=== PATIENT | male | born 1950 | race Caucasian/White ===

== ENCOUNTER → 2017-04-24 | Outpatient (REF) | payer MEDICARE, OTHER ==
[2017-04-24 14:00] LABS: ALBUMIN 4.3 GM/DL (3.2-5.2); ALBUMIN/GLOBULIN RATIO 1.48 (1.00-1.93); ALKALINE PHOSPHATASE 129 U/L (45-117); ALT/SGPT 52 U/L (12-78); ANION GAP 7 MEQ/L (8-16); AST/SGOT 51 U/L (15-37); BILIRUBIN,TOTAL 0.7 MG/DL (0.2-1.0); BLOOD UREA NITROGEN 24 MG/DL (7-18); CALCIUM LEVEL 8.9 MG/DL (8.8-10.2); CARBON DIOXIDE LEVEL 29 MEQ/L (21-32); CHLORIDE LEVEL 105 MEQ/L (98-107); CREATININE FOR GFR 0.97 MG/DL (0.70-1.30); GLOMERULAR FILTRATION RATE > 60.0 (>49); GLUCOSE, FASTING 130 MG/DL (80-110); POTASSIUM SERUM 3.6 MEQ/L (3.5-5.1); SODIUM LEVEL 141 MEQ/L (136-145); TOTAL PROTEIN 7.2 GM/DL (6.4-8.2)
== END ==
LOC: M LABDRAW1 13:05
PROVIDERS: ATTEND Physician Assistant
DX: I25.10 Atherosclerotic heart disease of native coronary artery without angina pectoris (principal); I11.9 Hypertensive heart disease without heart failure; E78.2 Mixed hyperlipidemia

== ENCOUNTER → 2017-10-27 | Outpatient (REF) | payer MEDICARE, OTHER ==
[2017-10-27 12:39] LABS: MEAN CORPUSCULAR HEMOGLOBIN 29.7 pg (27.0-33.0); MEAN CORPUSCULAR HGB CONC 33.6 g/dl (32.0-36.5); MEAN CORPUSCULAR VOLUME 88.4 fl (80.0-96.0); PLATELET COUNT, AUTOMATED 287 10^3/uL (150-450); RED CELL DISTRIBUTION WIDTH 12.9 % (11.5-14.5); WHITE BLOOD COUNT 5.7 10^3/uL (4.0-10.0)
[2017-10-27 12:56] LABS: ALBUMIN/GLOBULIN RATIO 1.25 (1.00-1.93); ALKALINE PHOSPHATASE 111 U/L (45-117); ALT/SGPT 32 U/L (12-78); ANION GAP 8 MEQ/L (8-16); AST/SGOT 34 U/L (7-37); BILIRUBIN,TOTAL 0.7 MG/DL (0.2-1.0); BLOOD UREA NITROGEN 21 MG/DL (7-18); CALCIUM LEVEL 9.3 MG/DL (8.8-10.2); CARBON DIOXIDE LEVEL 32 MEQ/L (21-32); CHLORIDE LEVEL 102 MEQ/L (98-107); CHOLESTEROL LEVEL 161 MG/DL (<200); GLOMERULAR FILTRATION RATE > 60.0 (>49); GLUCOSE, FASTING 137 MG/DL (80-110); POTASSIUM SERUM 4.1 MEQ/L (3.5-5.1); SODIUM LEVEL 142 MEQ/L (136-145); TOTAL PROTEIN 7.2 GM/DL (6.4-8.2); TRIGLYCERIDES LEVEL 123 MG/DL (<150)
== END ==
LOC: M LABDRAW1 12:21
PROVIDERS: ATTEND Physician Assistant
DX: I25.10 Atherosclerotic heart disease of native coronary artery without angina pectoris (principal); I11.9 Hypertensive heart disease without heart failure; E78.2 Mixed hyperlipidemia

== ENCOUNTER → 2018-04-29 | Outpatient (REF) | payer MEDICARE, OTHER ==
[2018-04-29 12:23] LABS: ALBUMIN 4.2 GM/DL (3.2-5.2); ALKALINE PHOSPHATASE 113 U/L (45-117); ALT/SGPT 42 U/L (12-78); ANION GAP 10 MEQ/L (8-16); AST/SGOT 35 U/L (7-37); BILIRUBIN,TOTAL 0.8 MG/DL (0.2-1.0); BLOOD UREA NITROGEN 19 MG/DL (7-18); CALCIUM LEVEL 9.3 MG/DL (8.8-10.2); CARBON DIOXIDE LEVEL 28 MEQ/L (21-32); CHLORIDE LEVEL 105 MEQ/L (98-107); CREATININE FOR GFR 0.99 MG/DL (0.70-1.30); GLOMERULAR FILTRATION RATE > 60.0 (>49); GLUCOSE, FASTING 145 MG/DL (70-100); SODIUM LEVEL 143 MEQ/L (136-145); TOTAL PROTEIN 7.2 GM/DL (6.4-8.2)
== END ==
LOC: M LABDRAW1 11:34
DX: I25.10 Atherosclerotic heart disease of native coronary artery without angina pectoris (principal); I11.9 Hypertensive heart disease without heart failure; E78.2 Mixed hyperlipidemia
CPT/HCPCS: 80053

== ENCOUNTER → 2018-10-22 | Outpatient (REF) | payer MEDICARE, OTHER ==
[2018-10-22 12:16] LABS: HEMATOCRIT 48.9 % (42.0-52.0); HEMOGLOBIN 16.2 g/dl (13.5-17.5); MEAN CORPUSCULAR HEMOGLOBIN 29.8 pg (27.0-33.0); MEAN CORPUSCULAR HGB CONC 33.1 g/dl (32.0-36.5); MEAN CORPUSCULAR VOLUME 89.9 fl (80.0-96.0); PLATELET COUNT, AUTOMATED 261 10^3/uL (150-450); RED BLOOD COUNT 5.44 10^6/uL (4.30-6.10); RED CELL DISTRIBUTION WIDTH 12.8 % (11.5-14.5); WHITE BLOOD COUNT 6.2 10^3/uL (4.0-10.0)
[2018-10-22 12:34] LABS: ALBUMIN 4.1 GM/DL (3.2-5.2); ALBUMIN/GLOBULIN RATIO 1.32 (1.00-1.93); ALKALINE PHOSPHATASE 108 U/L (45-117); ALT/SGPT 50 U/L (12-78); ANION GAP 7 MEQ/L (8-16); AST/SGOT 42 U/L (7-37); BILIRUBIN,TOTAL 0.9 MG/DL (0.2-1.0); BLOOD UREA NITROGEN 22 MG/DL (7-18); CALCIUM LEVEL 9.1 MG/DL (8.8-10.2); CARBON DIOXIDE LEVEL 30 MEQ/L (21-32); CHLORIDE LEVEL 104 MEQ/L (98-107); CHOLESTEROL LEVEL 176 MG/DL (<200); CREATININE FOR GFR 1.03 MG/DL (0.70-1.30); GLOMERULAR FILTRATION RATE > 60.0 (>49); GLUCOSE, FASTING 148 MG/DL (70-100); HDL CHOLESTEROL 53 MG/DL (>40); LDL CHOLESTEROL 94 MG/DL (<100); NON-HDL-C 123 MG/DL; POTASSIUM SERUM 4.2 MEQ/L (3.5-5.1); SODIUM LEVEL 141 MEQ/L (136-145); TOTAL PROTEIN 7.2 GM/DL (6.4-8.2); TRIGLYCERIDES LEVEL 145 MG/DL (<150)
== END ==
LOC: M LABDRAW1 11:38
DX: I25.10 Atherosclerotic heart disease of native coronary artery without angina pectoris (principal); I11.9 Hypertensive heart disease without heart failure; E78.2 Mixed hyperlipidemia
CPT/HCPCS: 80053

== ENCOUNTER → 2019-10-25 | Outpatient (REF) | payer MEDICARE, OTHER ==
[2019-10-25 12:10] LABS: HEMATOCRIT 49.6 % (42.0-52.0); MEAN CORPUSCULAR HEMOGLOBIN 29.5 pg (27.0-33.0); MEAN CORPUSCULAR HGB CONC 32.3 g/dl (32.0-36.5); MEAN CORPUSCULAR VOLUME 91.5 fl (80.0-96.0); PLATELET COUNT, AUTOMATED 269 10^3/uL (150-450); RED BLOOD COUNT 5.42 10^6/uL (4.30-6.10); WHITE BLOOD COUNT 6.1 10^3/uL (4.0-10.0)
[2019-10-25 12:45] LABS: ALBUMIN 4.2 GM/DL (3.2-5.2); ALT/SGPT 35 U/L (12-78); BILIRUBIN,TOTAL 0.8 MG/DL (0.2-1.0); BLOOD UREA NITROGEN 19 MG/DL (7-18); CALCIUM LEVEL 9.7 MG/DL (8.8-10.2); CARBON DIOXIDE LEVEL 29 MEQ/L (21-32); CHLORIDE LEVEL 103 MEQ/L (98-107); CHOLESTEROL LEVEL 171 MG/DL (<200); CREATININE FOR GFR 1.06 MG/DL (0.70-1.30); GLOMERULAR FILTRATION RATE > 60.0 (>49); GLUCOSE, FASTING 187 MG/DL (70-100); HDL CHOLESTEROL 57 MG/DL (>40); LDL CHOLESTEROL 80 MG/DL (<100); NON-HDL-C 114 MG/DL; POTASSIUM SERUM 4.1 MEQ/L (3.5-5.1); SODIUM LEVEL 141 MEQ/L (136-145); TOTAL PROTEIN 7.3 GM/DL (6.4-8.2); TRIGLYCERIDES LEVEL 170 MG/DL (<150)
== END ==
LOC: M LABDRAW1 11:47
PROVIDERS: ATTEND Physician Assistant
DX: I11.9 Hypertensive heart disease without heart failure (principal); E78.2 Mixed hyperlipidemia; I25.10 Atherosclerotic heart disease of native coronary artery without angina pectoris

== ENCOUNTER → 2020-04-20 | Outpatient (REF) | payer MEDICARE, OTHER | LOC: M LAB 19:15 | PROVIDERS: ATTEND Physician Assistant | DX: R31.9 Hematuria, unspecified (principal) ==

== ENCOUNTER → 2020-04-21 | Outpatient (CLI) | payer MEDICARE, OTHER ==
[2020-04-21 11:28] LABS: ALBUMIN 4.2 GM/DL (3.2-5.2); ALT/SGPT 51 U/L (12-78); BILIRUBIN,TOTAL 0.8 MG/DL (0.2-1.0); BLOOD UREA NITROGEN 24 MG/DL (7-18); CALCIUM LEVEL 9.3 MG/DL (8.8-10.2); CARBON DIOXIDE LEVEL 29 MEQ/L (21-32); CHLORIDE LEVEL 103 MEQ/L (98-107); CREATININE FOR GFR 1.13 MG/DL (0.70-1.30); GLOMERULAR FILTRATION RATE > 60.0 (>49); GLUCOSE, FASTING 211 MG/DL (70-100); SODIUM LEVEL 141 MEQ/L (136-145); TOTAL PROTEIN 7.3 GM/DL (6.4-8.2)
[2020-04-21 11:29] LABS: BASO # 0.1 10^3/uL (0.0-0.2); EOS # 0.3 10^3/uL (0.0-0.5); EOS % 5.1 % (0.0-3.0); HEMATOCRIT 47.1 % (42.0-52.0); HEMOGLOBIN 15.5 g/dl (13.5-17.5); LYMPH # 1.3 10^3/uL (1.5-5.0); LYMPH % 21.4 % (24.0-44.0); MEAN CORPUSCULAR HEMOGLOBIN 29.9 pg (27.0-33.0); MEAN CORPUSCULAR HGB CONC 32.9 g/dl (32.0-36.5); MEAN CORPUSCULAR VOLUME 90.9 fl (80.0-96.0); MONO # 0.5 10^3/uL (0.0-0.8); MONO % 7.7 % (0.0-5.0); NEUTROPHILS # 3.9 10^3/uL (1.5-8.5); NEUTROPHILS % 64.3 % (36.0-66.0); PLATELET COUNT, AUTOMATED 266 10^3/uL (150-450); RED BLOOD COUNT 5.18 10^6/uL (4.30-6.10); WHITE BLOOD COUNT 6.1 10^3/uL (4.0-10.0)
--- NOTE | 2020-04-23 10:15 | REP ---
KUB: REASON FOR EXAM: Hematuria. There are no priors for comparison. Preliminary report given by Dr. Briones. FINDINGS: KUB shows the intestinal gas pattern to be nonspecific. The organ silhouettes insofar as delineated are unremarkable. There is no evidence of free intraperitoneal air. IMPRESSION: Nonspecific. The stool pattern is within normal limits. Nonspecific calcifications are seen in the pelvis. If nephroureteral lithiasis is of clinical concern, then a noncontrast enhanced CT of the abdomen and pelvis using the stone protocol is recommended. Electronically Signed by Seng Obrien DO 04/23/2020 10:57 A
== END ==
LOC: M WUC 08:01
PROVIDERS: ATTEND Physician Assistant
DX: R31.9 Hematuria, unspecified (principal)

== ENCOUNTER → 2020-04-24 | Outpatient (CLI) | payer MEDICARE, OTHER ==
[2020-04-24 13:11] LABS: HEMOGLOBIN A1c 8.1 %
[2020-04-25 10:35] LABS: HEPATITIS A ANTIBODY IGM NEGATIVE (NEGATIVE); HEPATITIS B CORE ANTIBODY IGM NEGATIVE (NEGATIVE); HEPATITIS B SURFACE ANTIGEN NEGATIVE (NEGATIVE); HEPATITIS C VIRUS ABY INDEX 0.2 INDEX (<0.8)
== END ==
LOC: M WUC 09:13
PROVIDERS: ATTEND Physician Assistant
DX: R31.9 Hematuria, unspecified (principal)

== ENCOUNTER → 2020-04-25 | Outpatient (CLI) | payer MEDICARE, OTHER ==
--- NOTE | 2020-04-25 12:35 | REP ---
RENAL AND BLADDER ULTRASOUND: RENAL ULTRASOUND: Real-time sonographic evaluation of the kidneys performed. Kidneys are normal in size and echotexture, right kidney measuring 11.7 x 6.6 x 6.0 cm and left kidney 10.8 x 6.1 x 6.3 cm. There is no hydronephrosis bilaterally. There is a cyst in the mid left kidney, 1.7 x 1.9 x 1.8 cm. There is no other evidence of renal mass. IMPRESSION: Left renal cyst, as discussed above. BLADDER ULTRASOUND: Real-time sonographic evaluation of the urinary bladder performed. Bladder measures 5.7 x 7.0 x 2.9 cm for a total volume of 76 mL. Ureteral jets are seen in the urinary bladder with Doppler color evaluation. Oval hypoechoic mass is seen along the posterior wall of the bladder measuring 2.7 x 1.6 x 3.6 cm. IMPRESSION: Posterior bladder mass, as discussed above. Electronically Signed by Madhu Kirk MD 04/26/2020 11:17 A
== END ==
LOC: M LRY 09:34
PROVIDERS: ATTEND Physician Assistant
DX: R31.9 Hematuria, unspecified (principal); N32.89 Other specified disorders of bladder; N28.1 Cyst of kidney, acquired

== ENCOUNTER → 2020-04-27 | Outpatient (REF) | payer MEDICARE, OTHER | LOC: M SMT 17:16 | PROVIDERS: ATTEND Nurse Practitioner Family | DX: N32.89 Other specified disorders of bladder (principal) | CPT/HCPCS: 88108; G0463 ==

== ENCOUNTER → 2020-05-01 | Outpatient (CLI) | payer MEDICARE, OTHER ==
[~2020-05-01] MED LIST: ISOVUE-370 76% 100ML VIAL As Ordered ONE
--- NOTE | 2020-05-01 16:24 | REP ---
REASON: History of a bladder mass. There are no priors for comparison. CONTRAST: 100 mL Isovue 370. In addition to standard CT, CT urography was obtained along with delayed imaging. The lung bases are clear. The precontrast enhanced portion of the examination shows hepatic and splenic density to be within normal limits. There are no choleliths. In the interpolar region of the left kidney, there is a 2.5 cm sized low density structure which has water density Hounsfield unit readings. There are no urinary bladder calcifications. Contrast-enhanced portions of the examination shows the liver, gallbladder, spleen, pancreas, adrenal glands and right kidney are unremarkable. Low density structure seen in the interpolar region of the left kidney shows no contrast enhancement. The abdominal aorta and para-aortic regions are within normal limits. Limited evaluation of the intra-abdominal and intrapelvic bowel loops and their mesenteries show them to be within normal limits. There is no free fluid or free air in the abdomen or pelvis. There is enhancing posterior urinary bladder wall mass which measures approximately 4.3 x 2[address] urography shows no abnormal ureteral filling defects and both right and left ureters were opacified with contrast throughout including the UV junction where the base of the bladder mass resides. There is no hydronephrosis or hydroureter created by the mass. IMPRESSION: 1. There is a urinary bladder mass as described above. 2. There is a Bosniak class 1 simple left renal cyst as described above. Electronically Signed by Seng Obrien DO 05/01/2020 05:04 P
== END ==
LOC: M RAD 15:01
PROVIDERS: ATTEND Nurse Practitioner Family
DX: N32.89 Other specified disorders of bladder (principal); R31.0 Gross hematuria
CPT/HCPCS: 74178; Q9967

== ENCOUNTER → 2020-05-15 | Outpatient (REF) | payer MEDICARE, OTHER ==
[~2020-05-15] MED LIST changes: +AMLO1TAB24; +AMLO1TAB25 PO; +ASPI81TA26 PO; +ATOR80TA59 PO; +COEN100T PO; +GEMF600T5 PO; +HYDR25TA PO; +HYDR25TAB; -ISOVUE-370 76% 100ML VIAL As Ordered ONE; +LISI-538; +METF500T13 PO; +NITR0.4S14; +OXYB5TAB10 PO; +SELF1KIT MC
== END ==
LOC: M SMT 14:50
PROVIDERS: ATTEND Urology
DX: N32.89 Other specified disorders of bladder (principal)

== ENCOUNTER → 2020-06-01 | Outpatient (CLI) | payer MEDICARE, OTHER ==
[~2020-06-01] MED LIST changes: +AMLO10TA5 PO; -AMLO1TAB24; -AMLO1TAB25 PO; +AMLO5TAB6
== END ==
LOC: M LABSMTC 12:35
PROVIDERS: ATTEND Anesthesiology
DX: Z01.818 Encounter for other preprocedural examination (principal); Z11.59 Encounter for screening for other viral diseases

== ENCOUNTER → 2020-06-01 | Outpatient (CLI) | payer MEDICARE, OTHER ==
[2020-06-01 14:00] LABS: APPEARANCE, URINE CLOUDY (CLEAR); BACTERIA, URINE AUTO 1+ (NEGATIVE); BILIRUBIN, URINE AUTO NEGATIVE (NEGATIVE); BLOOD, URINE BLOOD 3+ (NEGATIVE); COLOR, URINE RED (YELLOW); GLUCOSE, URINE (UA) AUTO NEGATIVE (NEGATIVE); KETONE, URINE AUTO NEGATIVE (NEGATIVE); LEUKOCYTE ESTERASE, URINE AUTO 1+ (NEGATIVE); NITRITE, URINE AUTO NEGATIVE (NEGATIVE); PROTEIN, URINE AUTO 2+ mg/dL (NEGATIVE); RBC, URINE AUTO TNTC /HPF (0-3); RENAL EPITHELIAL CELLS 6 /HPF; SPECIFIC GRAVITY URINE AUTO 1.011 (1.002-1.035); SQUAMOUS EPITHELIAL CELL UR AU 2 /HPF (0-6); UROBILINOGEN, URINE AUTO 0.2 mg/dL (0.0-2.0); WBC, URINE AUTO TNTC /HPF (0-3)
[2020-06-01 14:03] LABS: HEMATOCRIT 34.2 % (42.0-52.0); HEMOGLOBIN 11.1 g/dl (13.5-17.5); MEAN CORPUSCULAR HEMOGLOBIN 29.8 pg (27.0-33.0); MEAN CORPUSCULAR HGB CONC 32.5 g/dl (32.0-36.5); MEAN CORPUSCULAR VOLUME 91.7 fl (80.0-96.0); PLATELET COUNT, AUTOMATED 350 10^3/uL (150-450); RED BLOOD COUNT 3.73 10^6/uL (4.30-6.10); WHITE BLOOD COUNT 7.5 10^3/uL (4.0-10.0)
[2020-06-01 14:13] LABS: INR 1.39; PROTHROMBIN TIME 16.8 SECONDS (11.8-14.0)
[2020-06-01 14:14] LABS: PARTIAL THROMBOPLASTIN TIME 35.4 SECONDS (25.0-38.4)
[2020-06-01 14:30] LABS: CALCIUM LEVEL 9.4 MG/DL (8.8-10.2); CREATININE FOR GFR 2.96 MG/DL (0.70-1.30); GLOMERULAR FILTRATION RATE 22.6 (>49); POTASSIUM SERUM 3.9 MEQ/L (3.5-5.1)
== END ==
LOC: M LAB 13:03
PROVIDERS: ATTEND Nurse Practitioner Women's Health
DX: Z01.818 Encounter for other preprocedural examination (principal); N32.89 Other specified disorders of bladder

== ENCOUNTER → 2020-06-22 | Outpatient (REF) | payer MEDICARE, OTHER ==
[~2020-06-22] MED LIST changes: -AMLO10TA5 PO; +AMLO1TAB24; +AMLO1TAB25 PO; -AMLO5TAB6
[2020-08-01 22:32] LABS: CALCIUM LEVEL 9.9 MG/DL (8.8-10.2); CREATININE FOR GFR 1.31 MG/DL (0.70-1.30); GLOMERULAR FILTRATION RATE 57.9 (>49); POTASSIUM SERUM 4.6 MEQ/L (3.5-5.1)
== END ==
LOC: M SFHCWAGY 14:50
PROVIDERS: ATTEND Family Medicine
DX: N17.9 Acute kidney failure, unspecified (principal)

== ENCOUNTER → 2020-08-20 | Outpatient (REF) | payer MEDICARE, OTHER ==
[2020-08-20 15:45] LABS: HEMOGLOBIN A1c 7.1 %
[2020-08-20 16:25] LABS: MAU/CREAT RATIO 431.7 MCG/MG (0.0-30.0)
== END ==
LOC: M SFHCPLAZ 09:54
PROVIDERS: ATTEND Family Medicine
DX: E11.9 Type 2 diabetes mellitus without complications (principal)
CPT/HCPCS: 36415; 82043; 83036; G0463

== ENCOUNTER → 2020-11-05 | Outpatient (CLI) | payer MEDICARE, OTHER ==
[2020-11-05 14:44] LABS: ALBUMIN 2.9 GM/DL (3.2-5.2); ALT/SGPT 26 U/L (12-78); AMYLASE 85 U/L (25-115); BILIRUBIN,TOTAL 0.2 MG/DL (0.2-1.0); BLOOD UREA NITROGEN 16 MG/DL (7-18); CALCIUM LEVEL 9.1 MG/DL (8.8-10.2); CARBON DIOXIDE LEVEL 28 MEQ/L (21-32); CHLORIDE LEVEL 103 MEQ/L (98-107); CREATININE FOR GFR 1.03 MG/DL (0.70-1.30); FREE T4 1.31 NG/DL (0.76-1.46); GLOMERULAR FILTRATION RATE > 60.0 (>49); GLUCOSE, FASTING 152 MG/DL (70-100); LIPASE 630 U/L (73-393); POTASSIUM SERUM 4.2 MEQ/L (3.5-5.1); SODIUM LEVEL 139 MEQ/L (136-145); THYROID STIMULATING HORMONE 0.137 uIU/ML (0.358-3.740); TOTAL PROTEIN 6.9 GM/DL (6.4-8.2)
== END ==
LOC: M PLALAB 13:12
PROVIDERS: ATTEND Physician Assistant
DX: C67.9 Malignant neoplasm of bladder, unspecified (principal); R53.83 Other fatigue

== ENCOUNTER → 2020-12-21 | Outpatient (CLI) | payer MEDICARE, OTHER ==
[~2020-12-21] MED LIST changes: +GASTROGRAFIN SOLUTION 30ML (Q9963) As Ordered ONE; +HYDR-3490; -HYDR25TAB; +ISOVUE-370 76% 100ML VIAL As Ordered ONE; -LISI-538; +LISI20TA33
--- NOTE | 2020-12-21 13:28 | REP ---
INDICATION: METASTATIC BLADDER CANCER. COMPARISON: Comparison is made with PET-CT study July 16, 2020.. TECHNIQUE: Helical scanning is acquired following the intravenous injection of 100 mL of Isovue 370. 3 mm axial images re-formatted. Coronal and sagittal MPR images are provided. FINDINGS: There is good opacification of the thoracic aorta and pulmonary arterial tree. There is no evidence of aneurysm, dissection, or pulmonary embolus. There is vascular calcification including left coronary artery vascular calcification. No hilar or mediastinal mass or new adenopathy is seen. The PET-CT showed hypermetabolic uptake in 2 right paratracheal superior mediastinal lymph nodes. These are both resolved. There are 2 cysts normal-sized right paratracheal lymph nodes just above the courtney. The largest of these has a short axis dimension of 7 mm. No new adenopathy is seen. No pleural or pericardial effusion is seen. No supraclavicular or axillary mass or adenopathy is seen. A right-sided [id number]-[id number]-Ihss catheter is noted. Lung window settings show no evidence of pulmonary nodule or parenchymal mass. There is minimal linear fibrosis in the left upper lobe posterolaterally. This is unchanged from the July 16, 2020 CT images. No bony destructive lesion is seen. IMPRESSION: Improved right superior perihilar adenopathy compared to the PET-CT findings. Otherwise no active disease. <Electronically signed by Saurabh Quick > 12/21/20 [id number]
--- NOTE | 2020-12-21 13:36 | REP ---
INDICATION: METASTATIC BLADDER CANCER. COMPARISON: Comparison abdomen pelvis CT study June 01, 2020. July 16, 2020 PET-CT images are also reviewed.. TECHNIQUE: Helical scanning is acquired and 3 mm axial images re-formatted. Coronal and sagittal MPR images are generated. The CT contrast enhancement dose is 100 mL of intravenous Isovue 370. FINDINGS: Digital preliminary cavalry scout radiograph demonstrates double-pigtail tail bilateral ureteral stents in place. Bowel gas pattern is unremarkable. Moderate stool. The liver is normal in size homogeneous in texture. No liver mass lesion is seen. The spleen is homogeneous and unremarkable. Normal adrenal glands are observed. No abnormality is noted in the pancreas or the gallbladder. There is no evidence of renal mass. There is a cyst at mid pole level in the left kidney measuring 1.9 cm in diameter. There is no evidence hydronephrosis on the right. There is mild to moderate hydronephrosis affecting the left kidney. The proximal pigtail loop is seen in good position in the left renal pelvis. No intrarenal calculus is observed. Normal caliber aorta with atherosclerotic plaquing. The left and right periaortic lymphadenopathy observed at the time the PET-CT from July 16, 2020 is no longer apparent. No upper abdominal or retroperitoneal adenopathy is seen. The previously noted bilateral iliac adenopathy is improved. There is a lymph node along the left external iliac artery which has a short axis dimension of 9 mm. No new adenopathy is seen. The urinary bladder is largely empty at the time of the scan but the previously noted bladder mass is no longer apparent on today's images. No bony destructive lesion is appreciated. There is some degenerative spondylosis changes in the lumbar spine. IMPRESSION: Previously noted left periaortic and bilateral inguinal lymphadenopathy is either resolved or improved. No progressive changes are seen. Bilateral double pigtail ureteral stents are noted in place. There is persistent left-sided hydronephrosis. <Electronically signed by Saurabh Quick > 12/21/20 [id number]
== END ==
LOC: M RAD 08:31
DX: C79.10 Secondary malignant neoplasm of unspecified urinary organs (principal); Z96.0 Presence of urogenital implants
CPT/HCPCS: 71260; 74177; Q9963; Q9967

== ENCOUNTER → 2021-03-25 | Outpatient (CLI) | payer MEDICARE, OTHER ==
--- NOTE | 2021-03-25 16:07 | REP ---
INDICATION: BLADDER CA. COMPARISON: Multiple the latest 12/21/2020 TECHNIQUE: Standard helical technique after the administration of 100 cc Isovue 370 intravenously and oral bowel preparatory contrast administration prior to the exam. FINDINGS: The liver, gallbladder, spleen, pancreas, adrenal glands, and kidneys are within normal limits. There is an unchanged left renal cyst. The bilateral collecting system stents have been removed. Left-sided hydronephrosis has resolved. The abdominal aorta and para-aortic regions are within normal limits. There is no adenopathy. There is no free fluid or free air. Bowel loops and the mesenteries are within normal limits. There is urinary bladder wall thickening which appears diffuse, however, the urinary bladder is decompressed. There is no pelvic adenopathy. Bone window technique throughout the examination shows the osseous structures to be stable and intact. IMPRESSION: There is no evidence of acute disease. Findings as described above. <Electronically signed by Seng Obrien > 03/25/21 [id number]
--- NOTE | 2021-03-25 16:25 | REP ---
INDICATION: BLADDER CA COMPARISON: Multiple latest 12/21/2020 TECHNIQUE: Standard helical technique after the intravenous administration of 100 cc Isovue 370. FINDINGS: There is no mediastinal or hilar adenopathy. There are small mediastinal and hilar lymph nodes status quo. There are no pleural or pericardial effusions. The imaged osseous structures are within normal limits for the patient's age. An Nnjnlb-X-Cwby catheter is in place. Evaluation of the lung zamarripa shows no abnormal nodules, masses, or opacities. IMPRESSION: CT findings are within normal limits. <Electronically signed by Seng Obrien > 03/25/21 [id number]
== END ==
LOC: M RAD 13:24
DX: C67.9 Malignant neoplasm of bladder, unspecified (principal)
CPT/HCPCS: 71260; 74177; Q9963; Q9967

== ENCOUNTER → 2021-04-30 | Outpatient (REF) | payer MEDICARE, OTHER ==
[~2021-04-30] MED LIST changes: -GASTROGRAFIN SOLUTION 30ML (Q9963) As Ordered ONE; -ISOVUE-370 76% 100ML VIAL As Ordered ONE
[2021-04-30 12:31] LABS: BLOOD UREA NITROGEN 18 MG/DL (7-18); CARBON DIOXIDE LEVEL 25 MEQ/L (21-32); CHLORIDE LEVEL 108 MEQ/L (98-107); CREATININE FOR GFR 1.02 MG/DL (0.70-1.30); GLOMERULAR FILTRATION RATE > 60.0 (>49); GLUCOSE, FASTING 186 MG/DL (70-100); POTASSIUM SERUM 4.1 MEQ/L (3.5-5.1); SODIUM LEVEL 139 MEQ/L (136-145)
== END ==
LOC: M PLALAB 10:14
PROVIDERS: ATTEND Physician Assistant
DX: I11.9 Hypertensive heart disease without heart failure (principal)

== ENCOUNTER → 2021-06-21 | Outpatient (CLI) | payer MEDICARE, OTHER ==
[~2021-06-21] MED LIST changes: +GASTROGRAFIN SOLUTION 30ML (Q9963) As Ordered ONE; +ISOVUE-370 76% 100ML VIAL As Ordered ONE
--- NOTE | 2021-06-21 15:32 | REP ---
INDICATION: BLADDER CA COMPARISON: 03/25/2021 and 12/21/2020 the only priors TECHNIQUE: Standard helical technique after the intravenous administration of 100 cc Isovue 370 FINDINGS: The mediastinum and pulmonary jose are stable. There is no mass or adenopathy. There are no pleural or pericardial effusions. The imaged upper abdomen and imaged osseous structures are unchanged. Evaluation of the lung zamarripa shows a stable 5 mm size nodule in the apicoposterior segment of the left upper lobe. The small nodule is unchanged from the 12/21/2020 exam as well. There are no new abnormal nodules, masses, or opacities. IMPRESSION: Stable CT examination of the chest. There is no evidence of acute intrathoracic disease. <Electronically signed by Seng Obrien > 06/21/21 [id number]
--- NOTE | 2021-06-21 15:46 | REP ---
INDICATION: BLADDER CA COMPARISON: None. TECHNIQUE: CT Scan of the abdomen and pelvis was performed with intravenous administration of 100 cc of Isovue 370, and oral contrast. Sagittal and coronal reconstruction images are performed. FINDINGS: Lung bases: Unremarkable. Liver: Normal Gallbladder: Unremarkable. Spleen: Normal. Adrenals: Normal. Pancreas: Normal. Kidneys: There is a 2.4 cm cyst in the mid left kidney. There is no hydroureteronephrosis. Small and large bowel: Unremarkable. Free fluid: None. Abdominal aorta: No aneurysm or dissection. Adenopathy: None. Appendix: Not inflamed. Osseous structures: Unremarkable. Pelvis: No mass. There are small bilateral inguinal hernias containing fat. IMPRESSION: Stable exam, no new findings. <Electronically signed by Madhu Kirk > 06/21/21 [id number]
== END ==
LOC: M RAD 12:47
DX: C67.9 Malignant neoplasm of bladder, unspecified (principal); N28.1 Cyst of kidney, acquired; R91.8 Other nonspecific abnormal finding of lung field
CPT/HCPCS: 71260; 74177; Q9963; Q9967

== ENCOUNTER → 2021-06-24 | Outpatient (CLI) | payer MEDICARE, OTHER ==
[~2021-06-24] MED LIST changes: -GASTROGRAFIN SOLUTION 30ML (Q9963) As Ordered ONE; -ISOVUE-370 76% 100ML VIAL As Ordered ONE
[2021-06-24 11:25] LABS: CHOLESTEROL RISK RATIO 3.12 (<5)
[2021-06-24 11:52] LABS: MAU/CREAT RATIO 30.8 MCG/MG (0.0-30.0)
[2021-06-24 13:26] LABS: HEMOGLOBIN A1c 7.7 %
== END ==
LOC: M PLALAB 09:17
PROVIDERS: ATTEND Family Medicine
DX: E11.9 Type 2 diabetes mellitus without complications (principal); E78.2 Mixed hyperlipidemia; N40.0 Benign prostatic hyperplasia without lower urinary tract symptoms
CPT/HCPCS: 36415; 80061; 82043; 83036; G0103

== ENCOUNTER → 2021-06-28 | Outpatient (CLI) | payer MEDICARE, OTHER ==
--- NOTE | 2021-06-28 08:52 | REP ---
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 COMPARISON: None. TECHNIQUE: Multiple sonographic images of the abdominal aorta. FINDINGS: Abdominal aortic measurements: Proximal, at diaphragm: Obscured cm AP x obscured cm transverse Renal artery level: Obscured cm AP x obscured cm transverse Mid aorta: 1.8 cm AP x 1.9 cm transverse Distal aorta, pre bifurcation: 1.2 cm AP x 1.5 cm transverse Right common iliac artery: 0.9 cm AP x 0.9 cm transverse Left common iliac artery: 0.9 cm AP x 0.9 cm transverse IMPRESSION: The abdominal aorta in the upper abdomen is obscured by bowel gas. There is no aortic aneurysm in the visualized portions of the abdominal aorta. <Electronically signed by Madhu Pineda > 06/28/21 [id number]
== END ==
LOC: M WHC 06:46
PROVIDERS: ATTEND Family Medicine
DX: F17.211 Nicotine dependence, cigarettes, in remission (principal)

== ENCOUNTER → 2021-09-18 | Outpatient (CLI) | payer MEDICARE, OTHER ==
[~2021-09-18] MED LIST changes: +GASTROGRAFIN SOLUTION 30ML (Q9963) As Ordered ONE; +ISOVUE-370 76% 100ML VIAL As Ordered ONE
--- NOTE | 2021-09-18 16:17 | REP ---
INDICATION: MALIGNANT NEOPLASM OF BLADDER. COMPARISON: CT 06/21/2021 TECHNIQUE: Bolus 100 mL Isovue 370 scanning through the chest with both coronal and sagittal reconstructions performed. FINDINGS: Of the lung zamarripa are well inflated. A small nodule, about 5 mm on image 25 peripherally in the left upper lobe is unchanged and consistent with a benign finding. There is no infiltrate, effusion, atelectasis or mass. No pleural thickening or calcified pleural plaques. The heart is not enlarged. There is no pericardial thickening or effusion. The aorta is without aneurysm or dissection. The main, right and left pulmonary arteries are without filling defects in the mediastinum. There is no mediastinal hilar adenopathy in the axilla and supraclavicular region show no mass. Bone windows show the spine, sternum, manubrium, medial clavicles, scapulae, humeral heads and ribs all intact. There is an indwelling right jugular port catheter, unchanged. The upper abdomen shows the liver, spleen, upper poles of kidneys that portion of pancreas included to be without acute finding gallbladder without calcified stone or mass. Small bowel loops contrast filled colon included in the field of view unremarkable. IMPRESSION: 1. Stable 5 mm nodule in the left upper lobe with no acute cardiopulmonary change. The aorta, central pulmonary arteries, mediastinum and bony thorax unremarkable. Stable exam. <Electronically signed by French Moffett > 09/18/21 [id number]
--- NOTE | 2021-09-18 16:27 | REP ---
INDICATION: MALIGNANT NEOPLASM OF BLADDER, UNSPECIFIED. COMPARISON: 06/21/2021 TECHNIQUE: Oral Gastrografin mixture 10 mL in 290 mL flavum water for 2 doses per our bowel contrast protocol followed by bolus of 100 mL Isovue 370 scanning through the abdomen and pelvis with delayed images through the abdomen. FINDINGS: Lung bases clear. Heart not enlarged. No pericardial thickening or effusion and no hiatal hernia. Liver, spleen, gallbladder, adrenal glands, pancreas and stomach show no acute finding left kidney shows mild atrophy overall compared to the right there is a cyst posteriorly in the interpolar lower pole junction about 2.3 cm, stable no stone mass or hydronephrosis atherosclerotic calcification and plaque in the aorta without aneurysm or dissection. No periaortic, other retroperitoneal or mesenteric pathologic sized lymph adenopathy. Abdominal portion of the colon shows stool and gas without sign of colitis or diverticulitis small bowel loops contrast or fluid-filled but not abnormally dilated appendix is seen and normal lung window review of all CT slices shows no perforation or free air. No evidence of abscess bone windows show some degenerative changes the spine and posterior elements of the lower lumbar region. Visualized ribs are intact. CT pelvis: Sacrum, pelvis, hips and pubic bone is without acute finding and some minor degenerative change. Small bowel loops in the pelvis contrast filled but unremarkable distal left colon sigmoid and rectum without acute finding. Prostate indents the bladder base unchanged the bladder shows slight wall thickening but it is under filled. There is a urachal remnant extending superiorly from the anterior superior margin of the bladder in the midline. No urachal mass or abnormal distension. No ventral hernia, pathologic sized inguinal adenopathy or pelvic lymphadenopathy. IMPRESSION: 1. The bladder bladder is underfilled, therefore difficult to evaluate but no gross mass, stone, dilated distal ureter or adjacent adenopathy in the deep pelvis. 2. Some degenerative changes in the spine and pelvis without acute bony finding. 3. Some atherosclerotic calcification of the abdominal aorta and branches without gross aneurysm. 4. Left kidney slightly atrophic compared to the right but good enhancement with contrast and a 2.3 cm simple cyst evident interpolar region. 5. Small bowel loops grossly intact. No other significant or acute finding. <Electronically signed by French Moffett > 09/18/21 [id number]
== END ==
LOC: M RAD 11:13
DX: C67.9 Malignant neoplasm of bladder, unspecified (principal); N28.1 Cyst of kidney, acquired; I70.0 Atherosclerosis of aorta; R91.1 Solitary pulmonary nodule
CPT/HCPCS: 71260; 74177; Q9963; Q9967

== ENCOUNTER → 2021-10-23 | Outpatient (CLI) | payer MEDICARE, OTHER ==
[~2021-10-23] MED LIST changes: -GASTROGRAFIN SOLUTION 30ML (Q9963) As Ordered ONE; -ISOVUE-370 76% 100ML VIAL As Ordered ONE
[2021-10-23 10:51] LABS: CHOLESTEROL RISK RATIO 2.484 (<5)
== END ==
LOC: M PLALAB 08:14
PROVIDERS: ATTEND Physician Assistant
DX: I25.10 Atherosclerotic heart disease of native coronary artery without angina pectoris (principal); E78.2 Mixed hyperlipidemia

== ENCOUNTER → 2021-12-18 | Outpatient (CLI) | payer MEDICARE, OTHER ==
[~2021-12-18] MED LIST changes: +GASTROGRAFIN SOLUTION 30ML (Q9963) As Ordered ONE; +ISOVUE-370 76% 100ML VIAL As Ordered ONE
== END ==
LOC: M RAD 11:01
DX: C79.10 Secondary malignant neoplasm of unspecified urinary organs (principal); R91.8 Other nonspecific abnormal finding of lung field; N28.1 Cyst of kidney, acquired; N32.89 Other specified disorders of bladder
CPT/HCPCS: 71260; 74177; Q9963; Q9967

== ENCOUNTER → 2021-12-30 | Outpatient (CLI) | payer MEDICARE, OTHER ==
[~2021-12-30] MED LIST changes: -GASTROGRAFIN SOLUTION 30ML (Q9963) As Ordered ONE; -ISOVUE-370 76% 100ML VIAL As Ordered ONE
[2021-12-30 10:46] LABS: ALBUMIN 4.3 GM/DL (3.2-5.2); ALT/SGPT 31 U/L (12-78); BILIRUBIN,TOTAL 0.6 MG/DL (0.2-1.0); BLOOD UREA NITROGEN 25 MG/DL (7-18); CALCIUM LEVEL 9.7 MG/DL (8.8-10.2); CARBON DIOXIDE LEVEL 27 MEQ/L (21-32); CHLORIDE LEVEL 103 MEQ/L (98-107); CREATININE FOR GFR 1.11 MG/DL (0.70-1.30); GLOMERULAR FILTRATION RATE > 60.0 (>42); GLUCOSE, FASTING 165 MG/DL (70-100); POTASSIUM SERUM 3.7 MEQ/L (3.5-5.1); SODIUM LEVEL 138 MEQ/L (136-145); TOTAL PROTEIN 7.7 GM/DL (6.4-8.2)
[2021-12-30 10:51] LABS: HEMOGLOBIN A1c 7.3 %
[2021-12-30 10:56] LABS: MALB URINE SIEMENS 63.7 MG/L; MAU/CREAT RATIO 35.9 MCG/MG (0.0-30.0)
== END ==
LOC: M PLALAB 07:45
PROVIDERS: ATTEND Family Medicine
DX: E11.9 Type 2 diabetes mellitus without complications (principal); R80.9 Proteinuria, unspecified

== ENCOUNTER → 2022-04-01 | Outpatient (CLI) | payer MEDICARE, OTHER ==
[~2022-04-01] MED LIST changes: +GASTROGRAFIN SOLUTION 30ML (Q9963) As Ordered ONE; +ISOVUE-370 76% 100ML VIAL As Ordered ONE
== END ==
LOC: M RAD 15:16
DX: C67.9 Malignant neoplasm of bladder, unspecified (principal); R91.1 Solitary pulmonary nodule; I25.10 Atherosclerotic heart disease of native coronary artery without angina pectoris; N28.1 Cyst of kidney, acquired; R93.3 Abnormal findings on diagnostic imaging of other parts of digestive tract
CPT/HCPCS: 71260; 74177; Q9963; Q9967

== ENCOUNTER → 2022-07-06 | Outpatient (CLI) | payer MEDICARE, OTHER ==
[~2022-07-06] MED LIST changes: +CHLO125TA PO; -GASTROGRAFIN SOLUTION 30ML (Q9963) As Ordered ONE; -ISOVUE-370 76% 100ML VIAL As Ordered ONE; +LISI20TA33 PO; +LOPI600T PO
== END ==
LOC: M LABSMTC 10:05
PROVIDERS: ATTEND Anesthesiology
DX: Z01.812 Encounter for preprocedural laboratory examination (principal); Z20.822 Contact with and (suspected) exposure to COVID-19

== ENCOUNTER 2022-07-10 07:36 | Day surgery (SDC) | payer MEDICARE, OTHER ==
[~2022-07-10] VITALS: Ht 165.1 cm; Wt 74.4 kg
[2022-07-10] MEDS ORDERED: propofoL 500 MG/50 ML VIAL As Ordered ONE (07:55)
[2022-07-10] MEDS ORDERED: GLYCOPYRROLATE INJ 0.2 MG/ML 2 ML VIAL As Ordered ONE (09:28)
[2022-07-10] MEDS ORDERED: ePHEDrine SULFATE 25 MG/5 ML(5MG/ML) SYRINGE As Ordered ONE (09:38)
[2022-07-10 10:23] VITALS: BP 134/74
[2022-07-11] MEDS ORDERED: NS 1,000 ML IV ONE (06:00)
== END 2022-07-10 10:27 | disposition home or self-care (01) ==
LOC: M OPP 07:36
PROVIDERS: ATTEND Surgery
DX: D12.3 Benign neoplasm of transverse colon (principal); K63.5 Polyp of colon; K62.1 Rectal polyp; Z80.0 Family history of malignant neoplasm of digestive organs; R19.5 Other fecal abnormalities; I10 Essential (primary) hypertension; E78.5 Hyperlipidemia, unspecified; E11.9 Type 2 diabetes mellitus without complications; I25.2 Old myocardial infarction; Z79.02 Long term (current) use of antithrombotics/antiplatelets; Z79.82 Long term (current) use of aspirin; Z79.84 Long term (current) use of oral hypoglycemic drugs; Z79.899 Other long term (current) drug therapy; Z88.6 Allergy status to analgesic agent; Z85.51 Personal history of malignant neoplasm of bladder; Z92.21 Personal history of antineoplastic chemotherapy; Z87.891 Personal history of nicotine dependence

== ENCOUNTER → 2022-07-23 | Outpatient (CLI) | payer MEDICARE, OTHER ==
[~2022-07-23] MED LIST changes: +GASTROGRAFIN SOLUTION 30ML (Q9963) As Ordered ONE; +ISOVUE-370 76% 100ML VIAL As Ordered ONE
== END ==
LOC: M RAD 07:59
PROVIDERS: ATTEND Physician Assistant
DX: C67.9 Malignant neoplasm of bladder, unspecified (principal); N28.1 Cyst of kidney, acquired; R91.1 Solitary pulmonary nodule; I70.0 Atherosclerosis of aorta; I25.10 Atherosclerotic heart disease of native coronary artery without angina pectoris
CPT/HCPCS: 71260; 74177; Q9963; Q9967

== ENCOUNTER → 2022-09-01 | Outpatient (REF) | payer MEDICARE, OTHER ==
[~2022-09-01] MED LIST changes: -GASTROGRAFIN SOLUTION 30ML (Q9963) As Ordered ONE; -ISOVUE-370 76% 100ML VIAL As Ordered ONE
== END ==
LOC: M SMT 09:58
PROVIDERS: ATTEND Urology
DX: C67.9 Malignant neoplasm of bladder, unspecified (principal); R82.998 Other abnormal findings in urine

== ENCOUNTER → 2022-09-18 | Outpatient (CLI) | payer MEDICARE, OTHER | LOC: M LABSMTC 11:20 | PROVIDERS: ATTEND Anesthesiology | DX: Z01.812 Encounter for preprocedural laboratory examination (principal); Z20.822 Contact with and (suspected) exposure to COVID-19 ==

== ENCOUNTER 2022-09-22 12:11 | Day surgery (SDC) | payer MEDICARE, OTHER ==
[~2022-09-22] VITALS: Ht 165.1 cm; Wt 74.8 kg
[~2022-09-22 12:11] MED LIST changes: +ceFAZolin SOD 2 GM in IV 1 EA IV ONE
[2022-09-22] MEDS ORDERED: LR 1,000 ML IV SCH ×2 (13:40→15:10)
[2022-09-22] MEDS ORDERED: propofoL 200 MG/20 ML VIAL As Ordered ONE (13:51)
[2022-09-22] MEDS ORDERED: ROCURONIUM BROMIDE 50 MG/5 ML VIAL As Ordered ONE (13:51)
[2022-09-22] MEDS ORDERED: LIDOCAINE 2% 100MG/5ML SDV (FOR ANES.) As Ordered ONE (13:51)
[2022-09-22] MEDS ORDERED: dexameTHASONE 4 MG/ML 1ML VIAL (J1100 PER 1MG) As Ordered ONE (13:51)
[2022-09-22] MEDS ORDERED: fentaNYL 250 MCG/5 ML INJECTION As Ordered ONE (13:51)
[2022-09-22] MEDS ORDERED: ONDANSETRON 4MG 2ML VIAL As Ordered ONE (13:51)
[2022-09-22] MEDS ORDERED: MIDAZOLAM INJ 2MG/2ML VIAL (J2250 PER 1MG) As Ordered ONE (13:52)
[2022-09-22] MEDS ORDERED: ISOVUE-300 61% 50ML VIAL As Ordered ONE (14:36)
[2022-09-22] MEDS ORDERED: ePHEDrine SULFATE 25 MG/5 ML(5MG/ML) SYRINGE As Ordered ONE ×2 (14:45→15:35)
[2022-09-22] MEDS ORDERED: SUGAMMADEX SODIUM 500 MG/5 ML VIAL (BRIDION) As Ordered ONE (15:01)
[2022-09-22] MEDS ORDERED: HYDROMORPHONE HCL 0.5 MG/ 0.5 ML SYRINGE (J1170 PER 1) IV PRN (15:10)
[2022-09-22] MEDS ORDERED: ONDANSETRON 4MG 2ML VIAL IV PRN (15:10)
[2022-09-22] MEDS ORDERED: oxyCODONE 5MG TAB PO PRN (15:10)
[2022-09-22] MEDS ORDERED: fentaNYL 100 MCG/2 ML INJECTION IV PRN (15:10)
[2022-09-22] MEDS ORDERED: ACETAMINOPHEN TAB 650MG DOSE (2X325MG) PO PRN (16:20)
[2022-09-22 17:00] VITALS: BP 123/64
== END 2022-09-22 17:12 | disposition home or self-care (01) ==
LOC: M SDC 12:11
PROVIDERS: ATTEND Urology
DX: C67.9 Malignant neoplasm of bladder, unspecified (principal); I25.10 Atherosclerotic heart disease of native coronary artery without angina pectoris; I10 Essential (primary) hypertension; I25.2 Old myocardial infarction; E78.5 Hyperlipidemia, unspecified; E11.9 Type 2 diabetes mellitus without complications; Z79.82 Long term (current) use of aspirin; Z79.84 Long term (current) use of oral hypoglycemic drugs; Z79.899 Other long term (current) drug therapy; Z92.21 Personal history of antineoplastic chemotherapy; Z88.8 Allergy status to other drugs, medicaments and biological substances; Z98.61 Coronary angioplasty status
CPT/HCPCS: 52235; 52332; 76000; 88305; C1769; C2617; J0690; J1100; J2250; J2405; J3010; Q9967

== ENCOUNTER → 2023-03-24 | Outpatient (CLI) | payer MEDICARE, OTHER ==
[~2023-03-24] MED LIST changes: -ceFAZolin SOD 2 GM in IV 1 EA IV ONE
== END ==
LOC: M WUC 10:31
PROVIDERS: ATTEND Physician Assistant
DX: S93.402A Sprain of unspecified ligament of left ankle, initial encounter (principal); S93.602A Unspecified sprain of left foot, initial encounter; X58.XXXA Exposure to other specified factors, initial encounter; Y92.89 Other specified places as the place of occurrence of the external cause; Y93.89 Activity, other specified; Y99.8 Other external cause status

== ENCOUNTER → 2023-04-09 | Outpatient (CLI) | payer MEDICARE, OTHER ==
[~2023-04-09] MED LIST changes: +GASTROGRAFIN SOLUTION 30ML As Ordered ONE; +ISOVUE-370 76% 100ML VIAL As Ordered ONE
== END ==
LOC: M RAD 13:15
DX: C67.8 Malignant neoplasm of overlapping sites of bladder (principal); K76.0 Fatty (change of) liver, not elsewhere classified; R91.8 Other nonspecific abnormal finding of lung field; I25.10 Atherosclerotic heart disease of native coronary artery without angina pectoris; I77.819 Aortic ectasia, unspecified site
CPT/HCPCS: 71260; 74177; Q9963; Q9967

== ENCOUNTER → 2023-04-20 | Outpatient (REF) | payer MEDICARE, OTHER ==
[~2023-04-20] MED LIST changes: -GASTROGRAFIN SOLUTION 30ML As Ordered ONE; -ISOVUE-370 76% 100ML VIAL As Ordered ONE
== END ==
LOC: M SMT 17:18
PROVIDERS: ATTEND Urology
DX: C67.9 Malignant neoplasm of bladder, unspecified (principal)

== ENCOUNTER → 2023-07-23 | Outpatient (CLI) | payer MEDICARE, OTHER ==
[~2023-07-23] MED LIST changes: +GASTROGRAFIN SOLUTION 30ML As Ordered ONE; +ISOVUE-370 76% 100ML VIAL As Ordered ONE
== END ==
LOC: M RAD 12:02
PROVIDERS: ATTEND Physician Assistant Medical
DX: C67.0 Malignant neoplasm of trigone of bladder (principal)
CPT/HCPCS: 71260; 74177; Q9963; Q9967

== ENCOUNTER → 2023-08-03 | Outpatient (REF) | payer MEDICARE, OTHER ==
[~2023-08-03] MED LIST changes: -GASTROGRAFIN SOLUTION 30ML As Ordered ONE; -ISOVUE-370 76% 100ML VIAL As Ordered ONE
== END ==
LOC: M SMT 15:26
PROVIDERS: ATTEND Urology
DX: C67.9 Malignant neoplasm of bladder, unspecified (principal)

== ENCOUNTER → 2023-10-20 | Outpatient (CLI) | payer MEDICARE, OTHER ==
[~2023-10-20] MED LIST changes: +ISOVUE-370 76% 100ML VIAL As Ordered ONE; -OXYB5TAB10 PO; +OXYB5TAB11 PO
== END ==
LOC: M RAD 11:09
PROVIDERS: ATTEND Physician Assistant Medical
DX: C67.0 Malignant neoplasm of trigone of bladder (principal); M48.061 Spinal stenosis, lumbar region without neurogenic claudication; N26.1 Atrophy of kidney (terminal); N28.1 Cyst of kidney, acquired; I25.10 Atherosclerotic heart disease of native coronary artery without angina pectoris; R91.1 Solitary pulmonary nodule; K76.0 Fatty (change of) liver, not elsewhere classified
CPT/HCPCS: 71260; 74177; Q9967

== ENCOUNTER → 2023-11-02 | Outpatient (REF) | payer MEDICARE, OTHER ==
[~2023-11-02] MED LIST changes: -ISOVUE-370 76% 100ML VIAL As Ordered ONE
== END ==
LOC: M SMT 12:56
PROVIDERS: ATTEND Urology
DX: C67.9 Malignant neoplasm of bladder, unspecified (principal)

== ENCOUNTER → 2024-03-31 | Outpatient (CLI) | payer MEDICARE, OTHER ==
[~2024-03-31] MED LIST changes: -HYDR25TA PO; +HYDR25TA88 PO; +ISOVUE-370 76% 100ML VIAL As Ordered ONE; -OXYB5TAB11 PO; +OXYB5TAB14 PO
== END ==
LOC: M RAD 16:37
PROVIDERS: ATTEND Physician Assistant Medical
DX: C67.0 Malignant neoplasm of trigone of bladder (principal)
CPT/HCPCS: 71260; 74177; Q9967

== ENCOUNTER → 2024-04-18 | Outpatient (REF) | payer MEDICARE, OTHER ==
[~2024-04-18] MED LIST changes: -ISOVUE-370 76% 100ML VIAL As Ordered ONE
== END ==
LOC: M SMT 17:04
PROVIDERS: ATTEND Urology
DX: C67.9 Malignant neoplasm of bladder, unspecified (principal)

== ENCOUNTER → 2024-06-14 | Outpatient (CLI) | payer MEDICARE, OTHER | LOC: M PLAIMG 12:32 | PROVIDERS: ATTEND Physician Assistant | DX: I77.810 Thoracic aortic ectasia (principal); I08.3 Combined rheumatic disorders of mitral, aortic and tricuspid valves ==

== ENCOUNTER → 2024-07-15 | Outpatient (CLI) | payer MEDICARE, OTHER ==
[~2024-07-15] MED LIST changes: +ISOVUE-370 76% 100ML VIAL As Ordered ONE
== END ==
LOC: M RAD 16:56
PROVIDERS: ATTEND Nurse Practitioner
DX: C67.8 Malignant neoplasm of overlapping sites of bladder (principal); C67.0 Malignant neoplasm of trigone of bladder; N28.1 Cyst of kidney, acquired; K44.9 Diaphragmatic hernia without obstruction or gangrene
CPT/HCPCS: 71260; 74177; Q9967

== ENCOUNTER → 2024-07-26 | Outpatient (REF) | payer MEDICARE, OTHER ==
[~2024-07-26] MED LIST changes: -ISOVUE-370 76% 100ML VIAL As Ordered ONE
== END ==
LOC: M SMT 13:34
PROVIDERS: ATTEND Urology
DX: C67.9 Malignant neoplasm of bladder, unspecified (principal)

== ENCOUNTER → 2024-10-31 | Outpatient (REF) | payer MEDICARE, OTHER | LOC: M SMT 12:47 | PROVIDERS: ATTEND Urology | DX: C67.9 Malignant neoplasm of bladder, unspecified (principal) ==

== ENCOUNTER → 2024-11-24 | Outpatient (CLI) | payer MEDICARE, OTHER ==
[~2024-11-24] MED LIST changes: +ISOVUE-370 76% 100ML VIAL As Ordered ONE
== END ==
LOC: M RAD 09:17
PROVIDERS: ATTEND Nurse Practitioner
DX: C67.0 Malignant neoplasm of trigone of bladder (principal); N28.1 Cyst of kidney, acquired; R91.1 Solitary pulmonary nodule
CPT/HCPCS: 71260; 74177; Q9967

== ENCOUNTER → 2025-01-13 | Outpatient (REF) | payer MEDICARE, OTHER ==
[~2025-01-13] MED LIST changes: -ISOVUE-370 76% 100ML VIAL As Ordered ONE
== END ==
LOC: M SFHCDERM 16:32
PROVIDERS: ATTEND Nurse Practitioner Family
DX: L82.1 Other seborrheic keratosis (principal)

== ENCOUNTER → 2025-03-27 | Outpatient (CLI) | payer MEDICARE, OTHER ==
[~2025-03-27] MED LIST changes: +ISOVUE-370 76% 100ML VIAL As Ordered ONE
== END ==
LOC: M RAD 09:33
PROVIDERS: ATTEND Nurse Practitioner
DX: C67.0 Malignant neoplasm of trigone of bladder (principal)
CPT/HCPCS: 71260; 74177; Q9967

== ENCOUNTER → 2025-07-19 | Outpatient (CLI) | payer MEDICARE, OTHER ==
[~2025-07-19] MED LIST changes: +ISOVUE-370 76% 100 ML VIAL As Ordered ONE; -ISOVUE-370 76% 100ML VIAL As Ordered ONE
== END ==
LOC: M RAD 08:40
PROVIDERS: ATTEND Nurse Practitioner
DX: C67.0 Malignant neoplasm of trigone of bladder (principal)
CPT/HCPCS: 71260; 74177; Q9967

== ENCOUNTER → 2025-11-06 | Outpatient (REF) | payer MEDICARE, OTHER ==
[~2025-11-06] MED LIST changes: -ISOVUE-370 76% 100 ML VIAL As Ordered ONE
== END ==
LOC: M SMT 13:05
PROVIDERS: ATTEND Urology
DX: C67.9 Malignant neoplasm of bladder, unspecified (principal)